=== PATIENT | female | born 1980 | race Caucasian/White ===

== ENCOUNTER 2017-10-24 09:25 | Emergency (ER) | payer BC ==
[~2017-10-24] VITALS: Ht 167.6 cm; Wt 66.2 kg
[~2017-10-24 09:25] MED LIST: ALEVE220 M1 PO; EFFEXOR XR75 MG PO; IRON256 MG PO; LORTAB 5-500 T1 EACH PO; NAPROXEN500 MG PO; PRENA1 SOFTGEL1 EACH PO; PROMETHAZINE HC25 M1 PO; VISTARIL25 MG PO; VITAMIN D400 UNI1 PO
[2017-10-24] MEDS ORDERED: MUCINEX DM ER1 EAC1 PO (09:38)
[2017-10-24] MEDS ORDERED: XANAX0.5 MG PO (11:49)
== END 2017-10-24 12:02 | disposition home or self-care (01) ==
LOC: ED 09:25
DX: F41.9 Anxiety disorder, unspecified (principal); T48.4X5A Adverse effect of expectorants, initial encounter; Z88.0 Allergy status to penicillin
CPT/HCPCS: 80053; 81001; 84703; 85025; 96361; 96374; 99283; J2060; J7030

== ENCOUNTER 2023-03-30 12:43 | Emergency (ER) | payer BC ==
[~2023-03-30] VITALS: Ht 167.6 cm; Wt 66.2 kg
[~2023-03-30 12:43] MED LIST changes: +MUCINEX DM ER1 EAC1 PO; +XANAX0.5 MG PO
[2023-03-30] MEDS ORDERED: VENTOLIN HFA18 GM INH (14:02)
[2023-03-30] MEDS ORDERED: LORATADINE10 MG PO (14:02)
[2023-03-30] MEDS ORDERED: PREDNISONE20 MG PO (14:02)
[2023-03-30 14:13] VITALS: BP 125/71
== END 2023-03-30 14:14 | disposition home or self-care (01) ==
LOC: ED 12:43
DX: J42 Unspecified chronic bronchitis (principal); Z88.0 Allergy status to penicillin; Z79.899 Other long term (current) drug therapy
CPT/HCPCS: 71046; 99284 25